=== PATIENT | male | born 1960 | race Caucasian/White ===

== ENCOUNTER 2020-03-31 00:56 | Emergency (ER) | payer BC, OTHER ==
[2020-03-31] MEDS ORDERED: Alum Hydrox/Mag Hydrox/Simeth 30 ML, Lidocaine 2% 15 ML PO ONE ×2 (01:08)
--- NOTE | 2020-03-31 01:20 | EDM.PDOC ---
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 Gasca is a very pleasant 59-year-old gentleman who now presents the ED after developing sudden-onset of burning retrosternal chest pain around 22:00 tonight, after going to bed. He states that it is a pain, not a discomfort. It does not radiate. He feels better if upright, otherwise, he has not identified any modifiers. He has associated diaphoresis, and he vomited after his gave him some tea, but no nausea since. No associated dyspnea. I am unable to determine if he has a sense of impending doom. No prior similar symptoms. The patient took a full enteric-coated aspirin prior to coming to the ED. Here in the ED, the patient's initial BP is found to be elevated at 165/93 with a tachycardia of 116 bpm. He is afebrile, saturating 99% on room air. Other than tonight's symptoms, the patient denies having a recent fever, chills, sore throat, ear pain, nasal or sinus congestion, cough, dyspnea, chest pain, palpitations, nausea, vomiting, constipation, diarrhea, abdominal pain, urinary symptoms, recent weight gain or weight loss, recent bloody bowel movements or black bowel movements, recent joint aches, headaches, or rashes. The patient does not have a PCP. Chest Pain Score (Numeric/FACES): 8 - Related Data Allergies Allergy/AdvReac Type Severity Reaction Status Date / Time Penicillins Allergy Cannot Verified 03/31/20 01:04 Remember Home Meds: Home Meds . 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 ED EXAM, GENERAL - Physical Exam Exam: See Below Exam Limited By: No Limitations General Appearance: Alert, WD/WN, No Apparent Distress Eye Exam: Bilateral Eye: EOMI, Normal Inspection Ears: Normal External Exam, Hearing Grossly Normal Nose: Normal Inspection Throat/Mouth: Normal Inspection, Normal Lips, Normal Voice, No Airway Compromise Head: Atraumatic, Normocephalic Neck: Normal Inspection, Full Range of Motion Respiratory/Chest: No Respiratory Distress, Lungs Clear, Normal Breath Sounds, No Accessory Muscle Use Cardiovascular: Normal Peripheral Pulses, No Gallop, No JVD, No Murmur, No Rub, Tachycardia (regular) Peripheral Pulses: 3+: Radial (L), Radial (R) GI/Abdominal: Normal Bowel Sounds, Soft, Non-Tender (including the epigastrium), No Organomegaly, No Distention, No Abnormal Bruit, No Mass Back Exam: Normal Inspection, Full Range of Motion, NT Extremities: Normal Inspection, Normal Range of Motion, Normal Capillary Refill Neurological: Alert, Oriented, Normal Cognition, No Motor/Sensory Deficits Psychiatric: Normal Affect Skin Exam: Warm, Dry, Intact, Normal Color, No Rash #1 Interpretation EKG Date: 03/31/20 Time: 01:02 Rhythm: Other (Sinus tachycardia) Rate (Beats/Min): 114 [place]: Other (Extreme axis deviation) P-Wave: Present QRS: RBBB ST-T: Depressed (lateral leads only, with no T-wave inversions) QT: Prolonged (QTc 502 ms) Comparison: NA - No Prior EKG #2 Interpretation EKG Date: 03/31/20 Time: 01:26 Rhythm: Other (Sinus tachycardia) Rate (Beats/Min): 107 [place]: Other (Extreme axis deviation) P-Wave: Present QRS: RBBB ST-T: Other (unable to accurately determine ST segment) QT: Prolonged (QTc 522 ms) Course - Vital Signs Last Recorded V/S: Last Vital Signs Temp 36.9 C 03/31/20 01:04 Pulse 95 03/31/20 02:32 Resp 16 03/31/20 02:32 BP 145/91 H 03/31/20 02:32 Pulse Ox 98 03/31/20 02:32 - Orders/Labs/Meds Orders: Active Orders 24 hr Category Date Time Status EKG Documentation Completion [RC] STAT Care 03/31/20 01:15 Active Chest 1V Frontal [CR] Stat Exams 03/31/20 01:15 Taken Heparin Sodium/D5W [Heparin 25,000 Units in D5W 500 ML] Med 03/31/20 02:00 Active 25,000 units in 500 ml IV TITRATE Medication Orders Heparin Sodium/Dextrose (Heparin 25,000 Units In D5w 500 Ml) 25,000 units in 500 mls @ 20 mls/hr IV TITRATE ARSLAN; Protocol Last Admin: 03/31/20 01:56 Dose: 1,000 units/hr, 20 mls/hr Documented by: SRINI Cosigned by: KEVIN Labs: Laboratory Tests 03/31/20 03/31/20 03/31/20 Range/Units 01:05 01:05 01:05 WBC 10.47 H (4.23-9.07) K/mm3 RBC 4.85 (4.63-6.08) M/mm3 Hgb 14.6 (13.7-17.5) gm/dl Hct 44.4 (40.1-51.0) % MCV 91.5 (79.0-92.2) fl MCH 30.1 (25.7-32.2) pg MCHC 32.9 (32.2-35.5) g/dl RDW Std Deviation 46.6 H (35.1-43.9) fL Plt Count 270 (163-337) K/mm3 MPV 11.0 (9.4-12.3) fl Neutrophils % (Manual) 50 (40-60) % Band Neutrophils % 5 (0-10) % Lymphocytes % (Manual) 39 (20-40) % Atypical Lymphs % 0 % Monocytes % (Manual) 2 (2-10) % Eosinophils % (Manual) 4 (0.8-7.0) % Basophils % (Manual) 0 L (0.2-1.2) Platelet Estimate Adequate Plt Morphology Comment Normal RBC Morph Comment Normal PT 9.8 (9.7-12.0) SECONDS INR < 0.93 APTT 21.7 (21.7-31.4) SECONDS D-Dimer, Quantitative 0.70 H (0.19-0.50) mg/L Sodium 137 (136-145) mEq/L Potassium 3.6 (3.5-5.1) mEq/L Chloride 101 (98-107) mEq/L Carbon Dioxide 27 (21-32) mEq/L Anion Gap 12.6 (5-15) BUN 13 (7-18) mg/dL Creatinine 1.6 H (0.7-1.3) mg/dL Est Cr Clr Drug Dosing 46.48 mL/min Estimated GFR (MDRD) 44 (>60) mL/min BUN/Creatinine Ratio 8.1 L (14-18) Glucose 157 H (74-106) mg/dL Calcium 9.5 (8.5-10.1) mg/dL Magnesium 1.9 (1.8-2.4) mg/dl Total Bilirubin 0.2 (0.2-1.0) mg/dL AST 23 (15-37) U/L ALT 36 (16-63) U/L Alkaline Phosphatase 89 (46-116) U/L Troponin I 0.246 H* (0.00-0.056) ng/mL Total Protein 8.5 H (6.4-8.2) g/dl Albumin 3.9 (3.4-5.0) g/dl Globulin 4.6 gm/dL Albumin/Globulin Ratio 0.9 L (1-2) SARS-CoV-2 RNA (GO) (NEGATIVE) 03/31/20 Range/Units 01:05 WBC (4.23-9.07) K/mm3 RBC (4.63-6.08) M/mm3 Hgb (13.7-17.5) gm/dl Hct (40.1-51.0) % MCV (79.0-92.2) fl MCH (25.7-32.2) pg MCHC (32.2-35.5) g/dl RDW Std Deviation (35.1-43.9) fL Plt Count (163-337) K/mm3 MPV (9.4-12.3) fl Neutrophils % (Manual) (40-60) % Band Neutrophils % (0-10) % Lymphocytes % (Manual) (20-40) % Atypical Lymphs % % Monocytes % (Manual) (2-10) % Eosinophils % (Manual) (0.8-7.0) % Basophils % (Manual) (0.2-1.2) Platelet Estimate Plt Morphology Comment RBC Morph Comment PT (9.7-12.0) SECONDS INR APTT (21.7-31.4) SECONDS D-Dimer, Quantitative (0.19-0.50) mg/L Sodium (136-145) mEq/L Potassium (3.5-5.1) mEq/L Chloride (98-107) mEq/L Carbon Dioxide (21-32) mEq/L Anion Gap (5-15) BUN (7-18) mg/dL Creatinine (0.7-1.3) mg/dL Est Cr Clr Drug Dosing mL/min Estimated GFR (MDRD) (>60) mL/min BUN/Creatinine Ratio (14-18) Glucose (74-106) mg/dL Calcium (8.5-10.1) mg/dL Magnesium (1.8-2.4) mg/dl Total Bilirubin (0.2-1.0) mg/dL AST (15-37) U/L ALT (16-63) U/L Alkaline Phosphatase (46-116) U/L Troponin I (0.00-0.056) ng/mL Total Protein (6.4-8.2) g/dl Albumin (3.4-5.0) g/dl Globulin gm/dL Albumin/Globulin Ratio (1-2) SARS-CoV-2 RNA (GO) Negative (NEGATIVE) Meds: Medications Generic Name Dose Route Start Last Admin Trade Name Alexandra PRN Reason Stop Dose Admin Heparin Sodium/Dextrose 25,000 units in 500 mls @ 20 mls/hr 03/31/20 02:00 03/31/20 01:56 Heparin 25,000 Units In D5w 500 Ml IV 1,000 units/hr TITRATE ARSLAN 20 mls/hr Administration Protocol 1,000 UNITS/HR Discontinued Medications Generic Name Dose Route Start Last Admin Trade Name Alexandra PRN Reason Stop Dose Admin Al Hydroxide/Mg Hydroxide 30 0 ml 03/31/20 01:08 03/31/20 01:13 ml/ Lidocaine HCl 15 ml PO 03/31/20 01:09 45 ml ONETIME ONE Administration Heparin Sodium (Porcine) 4,000 units 03/31/20 01:47 03/31/20 01:56 Heparin Sodium IVPUSH 03/31/20 01:48 4,000 units .BOLUS STA Administration Hydromorphone HCl 0.5 mg 03/31/20 01:46 03/31/20 01:56 Dilaudid IVPUSH 03/31/20 01:47 0.5 mg ONETIME ONE Administration - Re-Assessments/Exams Free Text/Narrative Re-Assessment/Exam: 03/31/20 01:16 As above, the patient developed sudden onset burning retrosternal chest pain around 22:00, while in bed. He had diaphoresis, and vomited once after his gave him some tea. No associated dyspnea. He feels better when upright. He took a single enteric-coated aspirin prior to coming to the ED. His pain is significantly improved here in the ED. His ECG reveals a right bundle branch block, and while the computer is interpreting the ECG is an acute [place], I do not see ST elevations, rather, where inflections are discernible, I see no ST elevation or depression in his inferior or anterior leads, and possible ST depressions, not elevations, in his lateral leads. The patient's symptoms are strongly suggestive of GERD, therefore I have ordered a GI cocktail to see if that modifies his symptoms. I have also ordered, however, several blood tests, a portable chest x-ray, and an ECG. 03/31/20 01:32 The patient reports further improvement in his retrosternal chest pain following the GI cocktail. A second ECG appears to be grossly unchanged from the first, with difficult to distinguish ST location in his precordial leads, but with the ECG computer inte rpreting acute ischemia (although no longer an acute [place]). 03/31/20 01:52 Case discussed with Tracy at [facility] at 01:36. While waiting for the Rental Representative, the patient's troponin returned elevated at 0.246. Case then discussed with Dr. Oviedo, Rental Representative at [facility], at 01:38. He reviewed the 2 ECGs. He finds that there is J-point elevation, but also Q waves. He believes we should treat this as a STEMI, recommending transfer to their ED [facility]. The patient will be started on a heparin bolus + drip. Case then discussed with Dr. Galvez, Emergency Physician at [facility], at 01:49. He accepted the patient for transfer to their ED. The patient will be transported by helicopter. 03/31/20 02:04 Portable chest radiograph appears to be grossly normal. The cardiac silhouette is within normal limits. No pulmonary vascular congestion. No pleural effusions seen on this AP view. No focal infiltrate. No pneumothorax. Formal read per the Radiologist pending. The patient's CBC is remarkable for a WBC count mildly elevated at 10.47, with 5% bandemia and the remainder of his CBC being unremarkable. His CMP is remarkable for a Cr elevated at 1.6 with a BUN normal at 13, and hyperglycemia of 157, with the remainder of his CMP being unremarkable. His magnesium level is within normal limits at 1.9. His D-dimer is slightly elevated at 0.70. His coags are within normal limits. I have pushed the portable chest x-ray image to Major Derasck. 03/31/20 03:19 Flight has come and collected the patient. The patient swab for the SARS-CoV-2 virus returned negative. Departure - Departure Time of Disposition: 01:52 Disposition: DC/Tfer to [facility] 02 Reason for Transfer *Q: Primary PCI Indicated Condition: Fair Clinical Impression: STEMI (ST elevation myocardial infarction) Referrals: PCP,None [Primary Care Provider] - Forms: ED Department Discharge Sepsis Event Note (ED) - Evaluation Sepsis Screening Result: No Definite Risk - Focused Exam Vital Signs: Vital Signs Temp Pulse Resp BP Pulse Ox 03/31/20 02:32 95 16 145/91 H 98 03/31/20 01:59 110 H 16 159/95 H 97 03/31/20 01:04 36.9 C 116 H 16 165/93 H 99 - My Orders Last 24 Hours: My Active Orders 03/31/20 01:15 EKG Documentation Completion [RC] STAT Chest 1V Frontal [CR] Stat 03/31/20 02:00 Heparin Sodium/D5W [Heparin 25,000 Units in D5W 500 ML] 25,000 units in 500 ml IV TITRATE - Assessment/Plan Last 24 Hours: My Active Orders 03/31/20 01:15 EKG Documentation Completion [RC] STAT Chest 1V Frontal [CR] Stat 03/31/20 02:00 Heparin Sodium/D5W [Heparin 25,000 Units in D5W 500 ML] 25,000 units in 500 ml IV TITRATE
[2020-03-31] MEDS ORDERED: HYDROmorphone 0.5 MG/0.5 ML Syringe IVPUSH ONE (01:46)
[2020-03-31] MEDS ORDERED: Heparin Sodium 5,000 Units/ML Vial IVPUSH STA (01:47)
[2020-03-31] MEDS ORDERED: Heparin Sodium/D5W 25,000 UNITS/500 ML BAG IV SCH (02:00)
[2020-03-31 03:27] VITALS: BP 159/95; PULSE 101
--- NOTE | 2020-03-31 09:48 | CR ---
Chest: Portable view of the chest was obtained. Comparison: No prior chest imaging is available. Heart size and mediastinum are normal. Lungs are clear with no acute parenchymal change. Slight degenerative spurring is scattered within the spine. No acute osseous finding is appreciated. Impression: 1. Nothing acute is seen on portable chest x-ray. Diagnostic code #2
== END 2020-03-31 03:25 ==
LOC: JD.ED 00:56
DX: I21.3 ST elevation (STEMI) myocardial infarction of unspecified site (principal); Z20.822 Contact with and (suspected) exposure to COVID-19; Z88.0 Allergy status to penicillin
CPT/HCPCS: 36415; 71045; 80053; 83735; 84484; 85007; 85027; 85379; 85610; 85730; 87635; 93005; 96365; 96375; 99285; A9270; J1170; J1644; 93010; U0002